=== PATIENT | female | born 2000 | race Caucasian/White ===

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

== ENCOUNTER 2018-10-20 04:15 | Emergency (ER) | payer OTHER ==
[2018-10-20] MEDS ORDERED: Sodium Chloride 0.9% 2.5 ML Syringe FLUSH PRN (04:21)
[2018-10-20] MEDS ORDERED: Sodium Chloride 0.9% 10 ML Syringe FLUSH PRN (04:21)
[2018-10-20] MEDS ORDERED: Sodium Chloride 0.9% 1,000 ML IV ONE ×2 (04:22→04:59)
[2018-10-20] MEDS ORDERED: Ondansetron 4 MG/2 ML SDV IVPUSH ONE (04:39)
[2018-10-20] MEDS ORDERED: Insulin Regular, Human 100 Units/ML 10 ML Vial SUBCUT ONE (04:39)
[2018-10-20 04:52] LABS: BLOOD UREA NITROGEN,BUN 22 mg/dL (7.0-18.0); CARBON DIOXIDE,CO2 23.2 mmol/L (21.0-32.0); CHLORIDE,CL 99 mmol/L (98-107); GLUCOSE RANDOM 461 mg/dL (74-106); POTASSIUM,K 4.1 mmol/L (3.5-5.1); SODIUM,NA 133 mmol/L (136-145)
[2018-10-20 05:04] LABS: HEMOGLOBIN A1C 9.6 % (4.5-6.2)
--- NOTE | 2018-10-20 05:08 | EDM.PDOC ---
<Tristan Briceño - Last Filed: 10/20/18 06:07> ED HPI GENERAL MEDICAL PROBLEM - General Chief Complaint: Diabetic Complaint Stated Complaint: DIABETES- BLOOD SUGAR HIGH RIGHT NOW Time Seen by Provider: 10/20/18 04:21 - History of Present Illness INITIAL COMMENTS - FREE TEXT/NARRATIVE: HISTORY AND PHYSICAL: History of present illness: Minna is a 18 year old female with a medical history of type 1 dm. She presents to the emergency department for the evaluation of hyperglycemia. The patient received a new insulin pump on 10/19/2018 at approximately 1500. She had an uneventful day and was awoken from a sleep approximately 30 minutes ago with symptoms of nausea and polydipsia. The patient checked her blood glucose at home and it was found to be at 527. The patient subsequently gave herself a 5 unit bolus of Humalog via her insulin pump and presented to the emergency department. Upon arrival to the emergency department her blood glucose on a point of care check was 411. When reviewing her daily insulin requirements, she informed me her basal rate is set to 34 units per day. She stated since 1500 she has given approximately 4 boluses to cover carb intake. The total bolus amount of insulin in the past 14 hours was found to be 17 units. It appears no basal insulin was delivered. The patient examined the insulin pump and it was discovered no basal insulin was programed. She denies recent illness or systemic symptoms such as fever, or chills. Review of systems: As per history of present illness and below otherwise all systems reviewed and negative. Past medical history: As per history of present illness and as reviewed below otherwise noncontributory. Surgical history: As per history of present illness and as reviewed below otherwise noncontributory. Social history: No reported history of drug or alcohol abuse. Family history: As per history of present illness and as reviewed below otherwise noncontributory. Physical exam: Constitutional: Well developed, well nourished mildly anxious HEENT: Atraumatic, normocephalic, pupils reactive, negative for conjunctival pallor or scleral icterus, mucous membranes moist, throat clear, neck supple, nontender, trachea midline. Lungs: Clear to auscultation, breath sounds equal bilaterally, chest nontender. Heart: S1S2, regular, negative for clicks, rubs, or JVD. Abdomen: Soft, nondistended, nontender. Negative for masses or hepatosplenomegaly. Negative for costovertebral tenderness. Pelvis: Stable nontender. Genitourinary: Deferred. Rectal: Deferred. Extremities: Atraumatic, negative for cords or calf pain. Neurovascular unremarkable. Neuro: Awake, alert, oriented. Cranial nerves II through XII unremarkable. Cerebellum unremarkable. Motor and sensory unremarkable throughout. Exam nonfocal. Diagnostics: UA Serum Ketone CMP CBC A1c Venous Blood Gas Therapeutics: 15 units of Regular Insulin Zofran 2 L 0.9ns 0330: Point of care blood glucose = 330. Impression: Hyperglycemia Plan: Diagnostic values reviewed- urine ketones are 40 however, she does not have any serum ketones present. Her venous gas does not indicate a severe acidosis. He blood last blood glucose was 289. The patient will be released home. She is to restart her basal rate of insulin. A sliding scale was given to the patient and she was instructed to check her blood glucose ever 3-4 hours. She was placed on the expedited list for primary care follow up. Consultation placed for religious educator. The patient was in agreement to the plan of care. She is to return to the ED as needed and as discussed. Definitive disposition and diagnosis as appropriate pending reevaluation and review of above. - Related Data Allergies Allergy/AdvReac Type Severity Reaction Status Date / Time No Known Allergies Allergy Verified 10/06/17 17:37 Home Meds: Home Meds Insulin Lispro [Humalog] 0 units SQ ASDIRECTED 10/06/17 [History] Levothyroxine 125 tab PO DAILY 10/06/17 [History] Past Medical History Musculoskeletal History: Reports: Other (See Below) Other Musculoskeletal History: knee surgery Endocrine/Metabolic History: Reports: Diabetes, Type I, Hypothyroidism Other Endocrine/Metabolic History: hx graves - Infectious Disease History Infectious Disease History: Reports: None - Past Surgical History HEENT Surgical History: Reports: Adenoidectomy, Naso-Sinus Surgery, Oral Surgery , Tonsillectomy, Other (See Below) Endocrine Surgical History: Reports: Thyroidectomy Social & Family History - Family History Family Medical History: Noncontributory - Tobacco Use Smoking Status *Q: Never Smoker - Caffeine Use Caffeine Use: Reports: Coffee - Recreational Drug Use Recreational Drug Use: No Course - Vital Signs Last Recorded V/S: Last Vital Signs Temp 36.8 C 10/20/18 05:19 Pulse 80 10/20/18 05:19 Resp 16 10/20/18 05:19 BP 112/69 10/20/18 05:19 Pulse Ox 98 10/20/18 05:19 - Orders/Labs/Meds Orders: Active Orders 24 hr Category Date Time Status Communication Order [RC] STAT Care 10/20/18 04:38 Active Consult to Machine Boss [Consult to Diabetic Nurse Cons 10/20/18 06:02 Active Specialist] [CONS] Stat Sodium Chloride 0.9% [Saline Flush] Med 10/20/18 04:21 Active 10 ml FLUSH ASDIRECTED PRN Sodium Chloride 0.9% [Saline Flush] Med 10/20/18 04:21 Active 2.5 ml FLUSH ASDIRECTED PRN Saline Lock Insert [OM.PC] Stat Oth 10/20/18 04:21 Ordered Medication Orders Sodium Chloride (Saline Flush) 10 ml FLUSH ASDIRECTED PRN PRN Reason: Keep Vein Open Sodium Chloride (Saline Flush) 2.5 ml FLUSH ASDIRECTED PRN PRN Reason: Keep Vein Open Labs: Laboratory Tests 10/20/18 10/20/18 10/20/18 Range/Units 04:25 04:25 04:25 WBC 10.02 (4.0-11.0) K/uL RBC 4.45 (4.30-5.90) M/uL Hgb 13.7 (12.0-16.0) g/dL Hct 41.1 (36.0-46.0) % MCV 92.4 (80.0-98.0) fL MCH 30.8 (27.0-32.0) pg MCHC 33.3 (31.0-37.0) g/dL RDW Std Deviation 45.6 (28.0-62.0) fl RDW Coeff of [place]ise[place] 14 (11.0-15.0) % Plt Count 338 (150-400) K/uL MPV 9.40 (7.40-12.00) fL Neut % (Auto) 52.7 (48.0-80.0) % Lymph % (Auto) 37.4 (16.0-40.0) % [place] % (Auto) 7.1 (0.0-15.0) % Eos % (Auto) 2.3 (0.0-7.0) % Baso % (Auto) 0.5 (0.0-1.5) % Neut # (Auto) 5.3 (1.4-5.7) K/uL Lymph # (Auto) 3.8 H (0.6-2.4) K/uL [place] # (Auto) 0.7 (0.0-0.8) K/uL Eos # (Auto) 0.2 (0.0-0.7) K/uL Baso # (Auto) 0.1 (0.0-0.1) K/uL Nucleated RBC % 0.0 /100WBC Nucleated RBCs # 0 K/uL VBG pH 7.34 (7.31-7.41) VBG pCO2 44 (35-45) mmHG VBG pO2 36 (30-40) mmHG VBG HCO3 23 (22-30) mEq/L VBG Total CO2 21 L (41-51) mmol/L VBG Base Excess -2.5 (-3.0-3.0) Sodium 133 L (136-145) mmol/L Potassium 4.1 (3.5-5.1) mmol/L Chloride 99 (98-107) mmol/L Carbon Dioxide 23.2 (21.0-32.0) mmol/L BUN 22 H (7.0-18.0) mg/dL Creatinine 1.0 (0.6-1.0) mg/dL Est Cr Clr Drug Dosing 77.49 mL/min Estimated GFR (MDRD) > 60.0 ml/min Glucose 461 H (74-106) mg/dL Hemoglobin A1c (4.5-6.2) % Calcium 9.4 (8.5-10.1) mg/dL Total Bilirubin 0.4 (0.2-1.0) mg/dL AST 6 L (15-37) IU/L ALT 17 (14-63) IU/L Alkaline Phosphatase 70 (46-116) U/L Total Protein 7.8 (6.4-8.2) g/dL Albumin 3.9 (3.4-5.0) g/dL Globulin 3.9 (2.6-4.0) g/dL Albumin/Globulin Ratio 1.0 (0.9-1.6) Urine Color Urine Appearance Urine pH (5.0-8.0) Ur Specific [place] (1.001-1.035) Urine Protein (NEGATIVE) mg/dL Urine Glucose (UA) (NEGATIVE) mg/dL Urine Ketones (NEGATIVE) mg/dL Urine Occult Blood (NEGATIVE) Urine Nitrite (NEGATIVE) Urine Bilirubin (NEGATIVE) Urine Urobilinogen (<2.0) EU/dL Ur Leukocyte Esterase (NEGATIVE) Urine HCG, Qual (NEGATIVE) Ketones (NEG) 10/20/18 10/20/18 10/20/18 Range/Units 04:25 04:25 04:35 WBC (4.0-11.0) K/uL RBC (4.30-5.90) M/uL Hgb (12.0-16.0) g/dL Hct (36.0-46.0) % MCV (80.0-98.0) fL MCH (27.0-32.0) pg MCHC (31.0-37.0) g/dL RDW Std Deviation (28.0-62.0) fl RDW Coeff of [place]iseo (11.0-15.0) % Plt Count (150-400) K/uL MPV (7.40-12.00) fL Neut % (Auto) (48.0-80.0) % Lymph % (Auto) (16.0-40.0) % [place] % (Auto) (0.0-15.0) % Eos % (Auto) (0.0-7.0) % Baso % (Auto) (0.0-1.5) % Neut # (Auto) (1.4-5.7) K/uL Lymph # (Auto) (0.6-2.4) K/uL [place] # (Auto) (0.0-0.8) K/uL Eos # (Auto) (0.0-0.7) K/uL Baso # (Auto) (0.0-0.1) K/uL Nucleated RBC % /100WBC Nucleated RBCs # K/uL VBG pH (7.31-7.41) VBG pCO2 (35-45) mmHG VBG pO2 (30-40) mmHG VBG HCO3 (22-30) mEq/L VBG Total CO2 (41-51) mmol/L VBG Base Excess (-3.0-3.0) Sodium (136-145) mmol/L Potassium (3.5-5.1) mmol/L Chloride (98-107) mmol/L Carbon Dioxide (21.0-32.0) mmol/L BUN (7.0-18.0) mg/dL Creatinine (0.6-1.0) mg/dL Est Cr Clr Drug Dosing mL/min Estimated GFR (MDRD) ml/min Glucose (74-106) mg/dL Hemoglobin A1c 9.6 H (4.5-6.2) % Calcium (8.5-10.1) mg/dL Total Bilirubin (0.2-1.0) mg/dL AST (15-37) IU/L ALT (14-63) IU/L Alkaline Phosphatase (46-116) U/L Total Protein (6.4-8.2) g/dL Albumin (3.4-5.0) g/dL Globulin (2.6-4.0) g/dL Albumin/Globulin Ratio (0.9-1.6) Urine Color YELLOW Urine Appearance CLEAR Urine pH 6.5 (5.0-8.0) Ur Specific [place] 1.010 (1.001-1.035) Urine Protein NEGATIVE (NEGATIVE) mg/dL Urine Glucose (UA) >=1000 (NEGATIVE) mg/dL Urine Ketones 40 H (NEGATIVE) mg/dL Urine Occult Blood NEGATIVE (NEGATIVE) Urine Nitrite NEGATIVE (NEGATIVE) Urine Bilirubin NEGATIVE (NEGATIVE) Urine Urobilinogen 0.2 (<2.0) EU/dL Ur Leukocyte Esterase NEGATIVE (NEGATIVE) Urine HCG, Qual (NEGATIVE) Ketones NEGATIVE (NEG) 10/20/18 Range/Units 04:35 WBC (4.0-11.0) K/uL RBC (4.30-5.90) M/uL Hgb (12.0-16.0) g/dL Hct (36.0-46.0) % MCV (80.0-98.0) fL MCH (27.0-32.0) pg MCHC (31.0-37.0) g/dL RDW Std Deviation (28.0-62.0) fl RDW Coeff of Eliseo (11.0-15.0) % Plt Count (150-400) K/uL MPV (7.40-12.00) fL Neut % (Auto) (48.0-80.0) % Lymph % (Auto) (16.0-40.0) % [place] % (Auto) (0.0-15.0) % Eos % (Auto) (0.0-7.0) % Baso % (Auto) (0.0-1.5) % Neut # (Auto) (1.4-5.7) K/uL Lymph # (Auto) (0.6-2.4) K/uL [place] # (Auto) (0.0-0.8) K/uL Eos # (Auto) (0.0-0.7) K/uL Baso # (Auto) (0.0-0.1) K/uL Nucleated RBC % /100WBC Nucleated RBCs # K/uL VBG pH (7.31-7.41) VBG pCO2 (35-45) mmHG VBG pO2 (30-40) mmHG VBG HCO3 (22-30) mEq/L VBG Total CO2 (41-51) mmol/L VBG Base Excess (-3.0-3.0) Sodium (136-145) mmol/L Potassium (3.5-5.1) mmol/L Chloride (98-107) mmol/L Carbon Dioxide (21.0-32.0) mmol/L BUN (7.0-18.0) mg/dL Creatinine (0.6-1.0) mg/dL Est Cr Clr Drug Dosing mL/min Estimated GFR (MDRD) ml/min Glucose (74-106) mg/dL Hemoglobin A1c (4.5-6.2) % Calcium (8.5-10.1) mg/dL Total Bilirubin (0.2-1.0) mg/dL AST (15-37) IU/L ALT (14-63) IU/L Alkaline Phosphatase (46-116) U/L Total Protein (6.4-8.2) g/dL Albumin (3.4-5.0) g/dL Globulin (2.6-4.0) g/dL Albumin/Globulin Ratio (0.9-1.6) Urine Color Urine Appearance Urine pH (5.0-8.0) Ur Specific [place] (1.001-1.035) Urine Protein (NEGATIVE) mg/dL Urine Glucose (UA) (NEGATIVE) mg/dL Urine Ketones (NEGATIVE) mg/dL Urine Occult Blood (NEGATIVE) Urine Nitrite (NEGATIVE) Urine Bilirubin (NEGATIVE) Urine Urobilinogen (<2.0) EU/dL Ur Leukocyte Esterase (NEGATIVE) Urine HCG, Qual NEGATIVE (NEGATIVE) Ketones (NEG) Meds: Medications Generic Name Dose Route Start Last Admin Trade Name Freq PRN Reason Stop Dose Admin Sodium Chloride 10 ml 10/20/18 04:21 Saline Flush FLUSH ASDIRECTED PRN Keep Vein Open Sodium Chloride 2.5 ml 10/20/18 04:21 Saline Flush FLUSH ASDIRECTED PRN Keep Vein Open Discontinued Medications Generic Name Dose Route Start Last Admin Trade Name Freq PRN Reason Stop Dose Admin Sodium Chloride 1,000 mls @ 999 mls/hr 10/20/18 04:22 10/20/18 04:37 Normal Saline IV 10/20/18 05:22 999 mls/hr STAT ONE Administration Sodium Chloride 1,000 mls @ 999 mls/hr 10/20/18 04:59 10/20/18 05:16 Normal Saline IV 10/20/18 05:59 999 mls/hr STAT ONE Administration Insulin Human Regular 15 unit 10/20/18 04:39 10/20/18 04:46 Novolin R SUBCUT 10/20/18 04:40 15 units ONETIME ONE Administration Protocol Ondansetron HCl 4 mg 10/20/18 04:39 10/20/18 04:48 Zofran IVPUSH 10/20/18 04:40 4 mg ONETIME ONE Administration Departure - Departure Disposition: Home, Self-Care 01 Clinical Impression: Hyperglycemia - Discharge Information Referrals: PCP,None [Primary Care Provider] - Forms: ED Department Discharge Additional Instructions: The following information is given to patients seen in the emergency department who are being discharged to home. This information is to outline your options for follow-up care. We provide all patients seen in our emergency department with a follow-up referral. The need for follow-up, as well as the timing and circumstances, are variable depending upon the specifics of your emergency department visit. If you don't have a primary care physician on staff, we will provide you with a referral. We always advise you to contact your personal physician following an emergency department visit to inform them of the circumstance of the visit and for follow-up with them and/or the need for any referrals to a consulting specialist. The emergency department will also refer you to a specialist when appropriate. This referral assures that you have the opportunity for followup care with a specialist. All of these measure are taken in an effort to provide you with optimal care, which includes your followup. Under all circumstances we always encourage you to contact your private physician who remains a resource for coordinating your care. When calling for followup care, please make the office aware that this follow-up is from your recent emergency room visit. If for any reason you are refused follow-up, please contact the [facility] emergency department at and ask to speak to the emergency department charge nurse. [facility] Primary care- [place] [address] Push hydration and watch her carb intake/diet. Please restart your insulin pump with a normal basal rate and continue to monitor your blood sugars frequently as we discussed, every 3-4 hours, and if you feel shaky or feel like you're having any symptoms of high blood sugar or low blood sugar. Use sliding scale insulin regimen you have been given as you feel comfortable. Please call the clinic later this morning and schedule a follow-up appointment making sure to tell them they your name was placed on an expedited follow-up list as an ED patient. Return to ER as needed and as discussed - My Orders Last 24 Hours: My Active Orders 10/20/18 04:21 Sodium Chloride 0.9% [Saline Flush] 10 ml FLUSH ASDIRECTED PRN Sodium Chloride 0.9% [Saline Flush] 2.5 ml FLUSH ASDIRECTED PRN Saline Lock Insert [OM.PC] Stat 10/20/18 04:38 Communication Order [RC] STAT 10/20/18 06:02 Consult to Machine Boss [Consult to Diabetic Nurse Specialist] [CONS] Stat - Assessment/Plan Last 24 Hours: My Active Orders 10/20/18 04:21 Sodium Chloride 0.9% [Saline Flush] 10 ml FLUSH ASDIRECTED PRN Sodium Chloride 0.9% [Saline Flush] 2.5 ml FLUSH ASDIRECTED PRN Saline Lock Insert [OM.PC] Stat 10/20/18 04:38 Communication Order [RC] STAT 10/20/18 06:02 Consult to Machine Boss [Consult to Diabetic Nurse Specialist] [CONS] Stat <Melvi Bui - Last Filed: 10/20/18 06:13> ED HPI GENERAL MEDICAL PROBLEM - History of Present Illness INITIAL COMMENTS - FREE TEXT/NARRATIVE: This is Dr. Bui dictating an addendum note as I am the supervising physician on this case. I agree with history and physical as above personally seen and evaluated the patient and she is nontoxic fairly easily and moving easily and quickly in the ED. It appears that the patient did not set a basal rate on her insulin pump she is not sure why that occurred but she has been giving herself boluses throughout the afternoon and evening since installing the pump. She had no symptoms yesterday of Demerol pain nausea vomiting diarrhea polydipsia or polyuria and all of her symptoms started when she awoke this morning. Her laboratory values have been reviewed and she has no serum ketones although she does have some urine ketones and her hemoglobin A1c is 9 with an anion gap 11 and no signs of infection. Her venous blood gases also not indicative of a severe acidosis. We have given her 15 units of regular insulin subcutaneous and 2 L of fluid and will reevaluate her blood glucose for disposition. It would be our hope that get her down into the 300s and get her restarted on her basal rate and have her cover herself a sliding scale insulin. We will discuss her comfort with doing this after the second liter of fluid is completed. Patient's repeat glucose after 2 L of IV fluids and the insulin 15 units is 289. The patient feels much improved and all the testing results were discussed with her and she would prefer to go home at this point. We have placed your name on it expedited follow-up list to get connected with primary care and a consult has been placed with the religious educator but it is unclear if she will be able to see this person without primary care clinic visit first. The patient seems very capable and managing her diabetes and will restart her basal rate and be diligent about checking her blood sugars and utilizing the sliding scale regular insulin she has been given. She is aware that she can return to the ED at any time for any issues or complications and advised on dietary management and pushing hydration. ED ROS GENERAL - Review of Systems Review Of Systems: ROS reveals no pertinent complaints other than HPI. ED EXAM GENERAL NO PERIP PULSE - Physical Exam Exam: See Below (See dictation) Departure - Departure Time of Disposition: 06:12 Condition: Good
[2018-10-20 06:25] VITALS: BP 110/71; PULSE 76
== END 2018-10-20 06:20 | disposition home or self-care (01) ==
LOC: MW.ED 04:15
DX: E10.65 Type 1 diabetes mellitus with hyperglycemia (principal); E03.9 Hypothyroidism, unspecified; Z79.890 Hormone replacement therapy
CPT/HCPCS: 36415; 80053; 81003; 81025; 82009; 82803; 82962; 83036; 85025; 96361; 96374; 99284; J2405; J7040; J1815-GY

== ENCOUNTER 2019-04-13 11:37 | Emergency (ER) | payer OTHER ==
[2019-04-13 12:06] VITALS: BP 115/64; PULSE 83
--- NOTE | 2019-04-13 12:48 | EDM.PDOC ---
ED HPI GENERAL MEDICAL PROBLEM - General Chief Complaint: Lower Extremity Injury/Pain Stated Complaint: LT FOOT PAIN Time Seen by Provider: 04/13/19 11:38 Source of Information: Reports: Patient History Limitations: Reports: No Limitations - History of Present Illness INITIAL COMMENTS - FREE TEXT/NARRATIVE: HISTORY OF PRESENT ILLNESS: Patient is a 18 year old female who reports 1.5 month history of left foot pain near outer heel area. No known trauma but has had overuse from recent hiking. Denies any weakness or paresthesias. No other hip or knee pain. No other injury. Is otherwise been in normal state of health. Pain is 5 out of 10 in severity has been using boot that she purchased [id number]. Denies , is currently on her menses REVIEW OF SYSTEMS: Other than the symptoms associated with the present events, the following is reported with regard to recent health: General: (-) fever. HENT: (-) congestion. Respiratory: (-) cough. Cardiovascular: (-) chest pain. GI: (-) abdominal pain. : (-) urinary complaints. Musculoskeletal: (+) left foot pain. Endocrine: (-) generalized weakness. Neurological: (-) localized weakness. Skin: (-) rash PAST MEDICAL HISTORY: reviewed as per nursing notes SOCIAL HISTORY: reviewed as per nursing notes, MEDICATIONS: Per nurse's note ALLERGIES: Per nurse's note, reviewed by me PHYSICAL EXAMINATION: GENERALIZED APPEARANCE: well developed, well nourished in no distress VITAL SIGNS: Per nurse's note, reviewed by me SKIN: Warm, dry; (-) cyanosis; (-) rash. HEAD: (-) scalp swelling, (-) tenderness. EYES: (-) scleral icterus. ENMT: (-) stridor; mucous membranes moist. CHEST AND RESPIRATORY: (-) rales, (-) rhonchi, (-) wheezes; breath sounds equal bilaterally. HEART AND CARDIOVASCULAR: (-) irregularity; (-) murmur, (-) gallop. EXTREMITIES: (-) deformity, (-) edema. (+) TTP left lateral heel. mild pain with dorsiflexion. 2+ DP. cap refill <2 sec. remainder of foot/ankle and LE wnl. sensation intact. 5/5+ Strength. NEURO AND PSYCH: Alert. Cranial nerves grossly intact; strength symmetric. gait steady DIAGNOSTICS: xray left foot: read by radiologist, reviewed by myself xray left ankle: read by radiologist, reviewed by myself EMERGENCY DEPARTMENT COURSE AND TREATMENT: Patient's condition remained stable during Emergency Department evaluation. After history and physical exam there was some suspicion for fracture so an x-ray was obtained. The x-ray was negative for fracture or dislocation. The patient appears otherwise well without obvious other injury. The patient was offered analgesia and instructed on symptomatic care. I felt that outpatient management with close followup by the patient's primary care provider/access services librarian in 1-2 days was appropriate. The patient's questions were answered, and discharge precautions and reasons to return to the ED were discussed. NVI at time of discharge PLAN AND FOLLOW-UP: Patient received written and verbal instructions regarding this condition. Return to ED immediately with any new or worsening symptoms. Follow up to be arranged by patient with pcp/access services librarian in 1-2 days for further evaluation. Given discharge precautions. Patient expressed verbal understanding. left foot Pain Score (Numeric/FACES): 5 - Related Data Allergies Allergy/AdvReac Type Severity Reaction Status Date / Time No Known Allergies Allergy Verified 04/13/19 12:06 Home Meds: Home Meds Insulin Lispro [Humalog] 0 units SQ ASDIRECTED 10/06/17 [History] Levothyroxine 125 tab PO DAILY 10/06/17 [History] Past Medical History Musculoskeletal History: Reports: Other (See Below) Other Musculoskeletal History: knee surgery Endocrine/Metabolic History: Reports: Diabetes, Type I, Hypothyroidism Other Endocrine/Metabolic History: hx graves - Infectious Disease History Infectious Disease History: Reports: None - Past Surgical History HEENT Surgical History: Reports: Adenoidectomy, Naso-Sinus Surgery, Oral Surgery , Tonsillectomy, Other (See Below) Endocrine Surgical History: Reports: Thyroidectomy Social & Family History - Family History Family Medical History: Noncontributory - Tobacco Use Smoking Status *Q: Never Smoker - Caffeine Use Caffeine Use: Reports: Coffee - Recreational Drug Use Recreational Drug Use: No Review of Systems - Review of Systems Review Of Systems: See Below (see dictation) ED EXAM, GENERAL - Physical Exam Exam: See Below (see dictation) Course - Vital Signs Last Recorded V/S: Last Vital Signs Temp 96.9 F 04/13/19 12:04 Pulse 83 04/13/19 12:04 Resp 16 04/13/19 12:04 BP 115/64 04/13/19 12:04 Pulse Ox 99 04/13/19 12:04 Departure - Departure Time of Disposition: 12:50 Disposition: Home, Self-Care 01 Condition: Good Clinical Impression: Foot sprain, Heel pain, Plantar fasciitis of left foot - Discharge Information *PRESCRIPTION DRUG MONITORING PROGRAM REVIEWED*: Not Applicable *COPY OF PRESCRIPTION DRUG MONITORING REPORT IN PATIENT GLENN: Not Applicable Instructions: Foot Sprain, Plantar Fasciitis Referrals: Khoa Ardon MD [Primary Care Provider] - 2 Days Javier Vail DPM [Physician] - 2 Days Forms: ED Department Discharge Additional Instructions: The following information is given to patients seen in the emergency department who are being discharged to home. This information is to outline your options for follow-up care. We provide all patients seen in our emergency department with a follow-up referral. The need for follow-up, as well as the timing and circumstances, are variable depending upon the specifics of your emergency department visit. If you don't have a primary care physician on staff, we will provide you with a referral. We always advise you to contact your personal physician following an emergency department visit to inform them of the circumstance of the visit and for follow-up with them and/or the need for any referrals to a consulting specialist. The emergency department will also refer you to a specialist when appropriate. This referral assures that you have the opportunity for follow-up care with a specialist. All of these measure are taken in an effort to provide you with optimal care, which includes your follow-up. Under all circumstances we always encourage you to contact your private physician who remains a resource for coordinating your care. When calling for follow-up care, please make the office aware that this follow-up is from your recent emergency room visit. If for any reason you are refused follow-up, please contact the [facility] at and asked to speak to the emergency department charge nurse. Sepsis Event Note - Evaluation Sepsis Screening Result: No Definite Risk - Focused Exam Vital Signs: Vital Signs Temp Pulse Resp BP Pulse Ox 04/13/19 12:04 96.9 F 83 16 115/64 99 Date Exam was Performed: 04/13/19 Time Exam was Performed: 13:45
--- NOTE | 2019-04-13 12:49 | CR ---
Left foot: 3 views left foot were obtained. Comparison: No prior left foot exam. Joint spaces are preserved. No fracture, dislocation or other bony abnormality is identified. Impression: 1. No abnormality is identified on left foot exam. Diagnostic code #1 This report was dictated in [place] Standard Time
--- NOTE | 2019-04-13 12:49 | CR ---
Left ankle: 3 views left ankle were obtained. Comparison: No previous ankle study. Ankle mortise is symmetric. No fracture, dislocation or other bony abnormality is identified. Impression: 1. No abnormality is identified on left ankle exam. Diagnostic code #1 This report was dictated in [place] Standard Time
== END 2019-04-13 13:08 | disposition home or self-care (01) ==
LOC: MW.ED 11:37
DX: S93.602A Unspecified sprain of left foot, initial encounter (principal); M72.2 Plantar fascial fibromatosis; E10.9 Type 1 diabetes mellitus without complications; E03.9 Hypothyroidism, unspecified; Z79.4 Long term (current) use of insulin; Z79.890 Hormone replacement therapy; Z90.89 Acquired absence of other organs; X50.9XXA Other and unspecified overexertion or strenuous movements or postures, initial encounter; Y93.01 Activity, walking, marching and hiking
CPT/HCPCS: 73610-26-LT; 73610-LT; 73630-26-LT; 73630-LT; 99283; 99283-25